=== PATIENT | female | born 1950 | race Caucasian/White ===

== ENCOUNTER 2024-07-17 13:00 | Emergency (ER) | payer OTHER ==
[2024-07-17] MEDS ORDERED: HYDROCODONE/APAP 5/325 MG TAB ONE (13:28)
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
--- NOTE | 2024-07-17 14:33 | RAD REPORT ---
EXAM: Hand Left 3 View HISTORY: PAIN COMPARISON: None FINDINGS: Bones: No acute fracture identified. Alignment:No significant malalignment. Degenerative changes:Severe degenerative changes are present at the first carpal metacarpal joint. Mi ld interphalangeal joint space narrowing. Osteopenia. Other: n/a IMPRESSION: No evidence of acute osseous abnormality involving the imaged hand.
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
[2024-07-17 15:22] VITALS: TEMP 99.6; O2SAT 95
[2024-07-17 15:23] VITALS: BP 144/89
== END 2024-07-17 15:16 | disposition home or self-care (01) ==
LOC: ER 13:00
DX: K11.8 Other diseases of salivary glands (principal); N63.10 Unspecified lump in the right breast, unspecified quadrant; V49.59XA Passenger injured in collision with other motor vehicles in traffic accident, initial encounter
CPT/HCPCS: 70450; 71250; 72125; 74176